=== PATIENT | female | born 1990 | race Caucasian/White ===

== ENCOUNTER 2021-04-20 15:16 | Outpatient (CLI) | payer BC, SELFPAY | END 2021-04-20 15:17 | disposition home or self-care (01) | LOC: ANHLAB 15:19 | PROVIDERS: Visit Provider Obstetrics & Gynecology | DX: Z11.59 Encounter for screening for other viral diseases (principal) | CPT/HCPCS: 36415; 86695; 86696; 86762; 86787 ==

== ENCOUNTER 2022-01-30 09:53 | Outpatient (RCR) | payer BC, SELFPAY ==
[2022-01-30 10:57] VITALS: BP 115/61; PULSE 110
== END 2022-03-26 08:14 | disposition home or self-care (01) ==
LOC: ANHOBOP 09:53
PROVIDERS: Visit Provider Obstetrics & Gynecology
DX: O36.8120 Decreased fetal movements, second trimester, not applicable or unspecified (principal); Z3A.24 24 weeks gestation of pregnancy
CPT/HCPCS: 59025

== ENCOUNTER 2022-03-13 16:00 | Outpatient (RCR) | payer BC, SELFPAY ==
[2022-03-13 16:01] VITALS: BMI 29.2
[2022-03-13 16:05] VITALS: BMI 29.2
== END 2022-05-22 10:01 | disposition home or self-care (01) ==
LOC: ANHDMC 16:00
PROVIDERS: Visit Provider Obstetrics & Gynecology
DX: O24.419 Gestational diabetes mellitus in pregnancy, unspecified control (principal); Z3A.00 Weeks of gestation of pregnancy not specified; Z71.89 Other specified counseling; Z71.3 Dietary counseling and surveillance
CPT/HCPCS: 97802; G0108

== ENCOUNTER 2022-03-15 12:00 | Observation (INO) | payer BC, SELFPAY ==
--- NOTE | ~2022-03-15 | US_ITS ---
EXAMINATION: US OB limited DATE: 03/15/2022 13:43 INDICATION: Spotting. Third trimester. TECHNIQUE: Real-time ultrasound of the pelvis was performed. COMPARISON: None. FINDINGS: There is a single fetus in breech presentation. The placenta is posterior, 7.8 cm from the cervix. F etal heart rate is 154 beats per minute (bpm). The amniotic fluid volume is subjectively normal. IMPRESSION: 1. Single living fetus in breech presentation. 2. Normal placenta. Reviewed, dictated and finalized at location A.
--- NOTE | 2022-03-15 12:25 | OBADM ---
This patient, Elizabeth Franklin, admitted to the OB room OB Post 113 for observation. Patient/family oriented to hospital policies and general routines including ID bracelet, bed and alarms, visiting hours, pain management, procedures, bathroom and other care routines, personal items, smoking policy, room service/diet, and visiting hours. Patient/Family are encouraged to report perceived risks to care and to ask questions if they do not understand what they are told or what they should do.
[2022-03-15 12:26] VITALS: BP 120/67; PULSE 102
--- NOTE | 2022-03-15 13:25 | PC.NURSE ---
pt to ultrasound per wheelchair
--- NOTE | 2022-03-15 13:42 | PC.NURSE ---
pt returned from ultrasound per wheelchair
--- NOTE | 2022-04-17 07:06 | PM.OBTRLD ---
OB - Triage/Final Diagnosis Visit Information Comments/Additional reasons for admission: I have assessed the risk for this patient, Elizabeth Desailaiolimpia, and determined that she would benefit from observation care. Final Diagnosis (1) Spotting affecting in third trimester: Code(s): O26.853 - Spotting complicating , third trimester Status: Acute
== END 2022-03-15 14:30 | disposition home or self-care (01) ==
PROVIDERS: Admitting Provider Obstetrics & Gynecology; Visit Provider Obstetrics & Gynecology
DX: O26.853 Spotting complicating pregnancy, third trimester (principal); Z3A.00 Weeks of gestation of pregnancy not specified
CPT/HCPCS: 76815; G0378; G0379

== ENCOUNTER 2022-05-09 05:04 | Inpatient (IN) | payer BC, SELFPAY ==
[2022-05-09] VITALS (108 sets, daily range): BP systolic 68–135; BP diastolic 36–94; PULSE 87–206; RESP 16–18; TEMP 36.4–37.2; O2SAT 86–100; BMI 29.8
--- NOTE | 2022-05-09 05:04 | LDADM ---
This patient, Elizabeth Franklin, was admitted to Labor/Delivery/Recovery 106 on 05/09/22 at 05:04. Plans for labor, pain management and were discussed with patient. Patient/family oriented to hospital policies and general routines including ID bracelet, bed and alarms, visiting hours, pain management, procedures, bathroom and other care routines, personal items, smoking policy, room service/diet and guest tray routines, security routines, and visiting hours. Patient/Family are encouraged to report perceived risks to care and to ask questions if they do not understand what they are told or what they should do. See OBIX for further documentation.
[2022-05-09 05:41] LABS: Basophils Percent Auto 0.2 % (0.2-1.2); Eosinophils Absolute Auto 0.2 K/mm3 (0-0.3); Hematocrit 35.6 % (37.0-47.0); Hemoglobin 11.8 g/dL (12.0-15.0); Immature Granulocyte Absolute 0.06 K/mm3 (0.00-0.031); Immature Granulocyte Percent A 0.6 % (0-0.5); Lymphocytes Percent Auto 28.7 % (18.3-44.2); Mean Corpuscular HGB Conc 33.1 g/dl (32-36); Mean Corpuscular Hemoglobin 29.2 pg (26-34); Mean Corpuscular Volume 88.1 fl (80-100); Monocytes Absolute Auto 0.7 K/mm3 (0.1-0.6); Monocytes Percent Auto 7.5 % (2.6-8.5); Platelet Count Result 161 k/mm3 (150-375); Red Blood Count 4.04 M/mm3 (4.2-5.4); Red Cell Distribution Width 13.7 % (11.5-14.5); White Blood Count 9.8 K/mm3 (4.5-10.0)
[2022-05-09 05:51] LABS: Glucose Point of Care 100 mg/dl (65-105)
[2022-05-09] MEDS: DINOPROSTONE 10 MG VAG INSERT VAGINAL (06:29)
[2022-05-09 09:01] LABS: Glucose Point of Care 82 mg/dl (65-105)
--- NOTE | 2022-05-09 09:14 | WPDANESEPP ---
Anes - Eval Pre Procedure Procedure: labor epidural Date/Time: 05/09/22 09:14 Pre Op Diagnosis: IOL Patient Data Age: 31 Gender: F Height: 1.57 m Weight: 74 kg Last Vital Signs Temp 36.8 C 05/09/22 08:30 Pulse 99 05/09/22 08:01 BP 107/79 05/09/22 08:01 O2 Del Method Room Air 05/09/22 05:15 Allergies Allergy/AdvReac Type Severity Reaction Status Date / Time No Known Allergies Allergy Verified 05/01/22 08:44 Home Medications Medication Instructions Recorded Confirmed Type docosahexaenoic acid 200 mg 200 mg PO DAILY 10/04/21 04/20/22 History capsule ( DHA) ferrous sulfate 143 mg PO .QOD 02/27/22 04/20/22 History valacyclovir 500 mg tablet 500 mg PO DAILY #30 tabs 04/18/22 04/20/22 Rx (Valtrex) Laboratory Tests 05/09/22 05/09/22 05/09/22 05:36 05:36 05:36 WBC 9.8 K/mm3 K/mm3 (4.5-10.0) RBC 4.04 M/mm3 L M/mm3 (4.2-5.4) Hgb 11.8 g/dL L g/dL (12.0-15.0) Hct 35.6 % L % (37.0-47.0) MCV 88.1 fl fl (80-100) MCH 29.2 pg pg (26-34) MCHC 33.1 g/dl g/dl (32-36) RDW 13.7 % % (11.5-14.5) Plt Count 161 k/mm3 k/mm3 (150-375) MPV 12.0 fl H fl (7.4-10.4) Immature Gran % (Auto) 0.6 % H % (0-0.5) Neut % (Auto) 61.0 % % (45.5-73.1) Lymph % (Auto) 28.7 % % (18.3-44.2) Graham % (Auto) 7.5 % % (2.6-8.5) Eos % (Auto) 2.0 % % (0-4.4) Baso % (Auto) 0.2 % % (0.2-1.2) Lymph # (Auto) 2.80 K/mm3 K/mm3 (0.9-3.2) Graham # (Auto) 0.7 K/mm3 H K/mm3 (0.1-0.6) Eos # (Auto) 0.2 K/mm3 K/mm3 (0-0.3) Baso # (Auto) 0.0 K/mm3 K/mm3 (0.0-0.1) Abs Immat Gran (auto) 0.06 K/mm3 H K/mm3 (0.00-0.031) Absolute Neuts (auto) 6.0 K/mm3 K/mm3 (1.3-6.7) Absolute Nucleated RBC 0.0 K/mm3 K/mm3 (0.0-0.012) Nucleated RBC % 0.0 % % (0.0-0.2) POC Capillary Glucose RPR Pending Blood Type A Positive Antibody Screen Negative 05/09/22 05/09/22 05:41 08:59 WBC RBC Hgb Hct MCV MCH MCHC RDW Plt Count MPV Immature Gran % (Auto) Neut % (Auto) Lymph % (Auto) Graham % (Auto) Eos % (Auto) Baso % (Auto) Lymph # (Auto) Graham # (Auto) Eos # (Auto) Baso # (Auto) Abs Immat Gran (auto) Absolute Neuts (auto) Absolute Nucleated RBC Nucleated RBC % POC Capillary Glucose 100 mg/dl mg/dl 82 mg/dl mg/dl (65-105) (65-105) RPR Blood Type Antibody Screen Patient hx anesthesia problems: none Family hx anesthesia problems: none Results Review: All pre-operative results and documents have been reviewed as part of the pre-operative evaluation. [facility] Past Medical History Medical History Abnormal Pap smear of cervix 04/20/21, LGSIL, HPV pos Surgical History Surgical History History of colposcopy 2019 History of loop electrical excision procedure (LEEP) 2019 [place] teeth extracted 2018 Family History Family History Mother Endometriosis Grandparent Carcinoma of colon Breast cancer Social History Social History Smoking status: Never smoker Alcohol intake: current Substance use: never Spiritual care concerns: No Exam Day of Procedure 05/09/22 09:14
[2022-05-09 13:07] LABS: Glucose Point of Care 109 mg/dl (65-105)
[2022-05-09 17:07] LABS: Glucose Point of Care 116 mg/dl (65-105)
[2022-05-09] MEDS: LACTATED RINGERS 1,000 ML 125 ML IV CONT ×2 (17:46→21:00)
[2022-05-09] MEDS: OXYTOCIN 30 UNITS/NS 500 ML 30 UNITS/500 ML BAG 6 UNITS IV CONT (17:47)
[2022-05-09 22:07] LABS: Glucose Point of Care 70 mg/dl (65-105)
[2022-05-10] VITALS (72 sets, daily range): BP systolic 97–146; BP diastolic 56–106; PULSE 87–136; RESP 16–18; TEMP 36.8–37.7; O2SAT 94–100
[2022-05-10 01:03] LABS: Glucose Point of Care 87 mg/dl (65-105)
[2022-05-10] MEDS: LACTATED RINGERS 1,000 ML 125 ML IV CONT (01:58)
[2022-05-10] MEDS: OXYTOCIN 30 UNITS/NS 500 ML 30 UNITS/500 ML BAG 125 UNITS IV CONT (05:37)
[2022-05-10] MEDS: LIDOCAINE HCL 1% LOCAL INJ 10 ML VIAL (05:39)
--- NOTE | 2022-05-10 06:43 | PM.IMHP ---
H&P: HPI History of Present Illness Date/Time: 05/10/22 06:43 Chief Complaint: Medical induction of labor Narrative: patient is a 31-year-old G0 at 39 weeks by an EDC of 05/16/2022 based on a last period of August 09, 2022 this is consistent with an 8 week ultrasound. course significant for diet-controlled gestational diabetes. She also has a history of her spouse with a history of HSV she has never had any lesion or any diagnosis of HSV. She was started on Valtrex at 36 weeks. Her last ultrasound the EFW was a 81st percentile. She was informed the abdominal circumference was increased. We had previously discussed risk of shoulder dystocia also discussed risk of failure to progress. She opted to get induced at 39 weeks to try to optimize vaginal delivery. Her labs were reviewed. GBS negative. Review of Systems Review of Systems: All systems reviewed & are unremarkable except as noted in HPI and below Constitutional: Constitutional: Reports no additional constitutional complaints and Denies headache(s) Eyes: Eyes: Denies spots in vision ENT: Reports system reviewed and no additional complaints, except as documented and Denies headache(s) Cardiovascular: Cardiovascular: Denies chest pain and Denies dyspnea Respiratory: Respiratory: Denies dyspnea Gastrointestinal: Gastrointestinal: Reports no additional gastrointestinal complaints Genitourinary: Genitourinary: Reports amenorrhea Musculoskeletal: Musculoskeletal: Reports no additional musculoskeletal complaints Integumentary/Breasts: Skin/Breast: Denies breast mass and Denies rash Neurologic: Denies headache(s) Psychiatric: Psychiatric: Reports no additional psychiatric complaints PMFSH Past Medical History Medical History Abnormal Pap smear of cervix 04/20/21, LGSIL, HPV pos Surgical History Surgical History History of colposcopy 2019 History of loop electrical excision procedure (LEEP) 2019 [place] teeth extracted 2018 Family History Family History Mother Endometriosis Grandparent Carcinoma of colon Breast cancer Social History Social History Smoking status: Never smoker Alcohol intake: current Substance use: never Spiritual care concerns: No Meds Home Medications and Allergies Home Medications Medication Instructions Recorded Confirmed Type docosahexaenoic acid 200 mg 200 mg PO DAILY 10/04/21 04/20/22 History capsule ( DHA) ferrous sulfate 143 mg PO .QOD 02/27/22 04/20/22 History valacyclovir 500 mg tablet 500 mg PO DAILY #30 tabs 04/18/22 04/20/22 Rx (Valtrex) Allergies Allergy/AdvReac Type Severity Reaction Status Date / Time No Known Allergies Allergy Verified 05/01/22 08:44 Vital Signs Vital Signs - 24 hr 05/09/22 07:01 05/09/22 07:31 05/09/22 08:01 Temperature Pulse Rate 96 90 99 Respiratory Rate Blood Pressure 130/80 108/53 L 107/79 Pulse Oximetry 05/09/22 08:30 05/09/22 12:32 05/09/22 12:30 Temperature 98.2 F 98.3 F Pulse Rate 99 Respiratory Rate Blood Pressure 127/84 Pulse Oximetry 05/09/22 13:01 05/09/22 13:31 05/09/22 16:35 Temperature Pulse Rate 94 93 99 Respiratory Rate Blood Pressure 118/59 L 108/61 126/80 Pulse Oximetry 05/09/22 16:34 05/09/22 18:55 05/09/22 18:54 Temperature 98.2 F 98.2 F Pulse Rate 97 Respiratory Rate 16 Blood Pressure 124/76 Pulse Oximetry 05/09/22 20:02 05/09/22 20:25 05/09/22 20:29 Temperature Pulse Rate 103 H 102 H Respiratory Rate Blood Pressure 135/82 118/81 Pulse Oximetry 95 05/09/22 20:32 05/09/22 20:34 05/09/22 20:39 Temperature Pulse Rate 107 H Respiratory Rate Blood Pressure 127/86 Pulse Oximetry 100 100
[2022-05-10] MEDS: IBUPROFEN 600 MG TABLET PO (06:54)
[2022-05-10] MEDS: BENZOCAINE 20% AER SPR (*SP) 56 GM CAN 1 SPRAY TOPICAL (06:55)
[2022-05-10] MEDS: WITCH HAZEL 40 PADS 1 PAD TOPICAL (06:55)
--- NOTE | 2022-05-10 07:13 | P.PCNOB_ITS ---
OB - Delivery Note Procedure Delivery date: 05/10/22 Procedure: Spontaneous vaginal delivery Events: Gestational Diabetes Induction method: Per Misoprostol Protocol Delivery augmentation: Rupture of Membranes and Pitocin Delivery monitor: External FHT and Internal Uterine Route of delivery: Episiotomy description: Left Mediolateral Laceration Description: None Delivery repair: vicryl ( 3 0 Vicryl) Specimen: Yes ( placenta and cord) Quantitative Blood Loss (ml): 250 Anesthesia type: Epidural Disposition: Floor Complications: shoulder dystocia lasting 60 seconds Narrative: patient was admitted on 6 10:00 p.m. for medical induction of labor with Cervidil at 39 weeks. Admission blood sugars normal. Her cervix on admission was 1 approximately 30% and -3 station. She started having moderate contractions in the afternoon. She had a cervical exam at approximately 3:30 a.m. and her cervix was 1 and half 60-70% -2. She had assisted rupture of membranes with clear fluid. She did receive Pitocin augmentation. She also had intrauterine pressure catheter placed to adequately adjust her Pitocin. An determine adequacy of labor. She requested an epidural. Epidural was placed. She subsequently dilated to complete at approximately 3:00 a.m.. She had effective pushing she started having mild variables at the time of complete. And with pushing had early decelerations. After approximately 45 minutes of pushing the decelerations were intermittently moderate to severe. I was called at that time to assess her due to the moderate decelerations. She had been pushing approximately an hour and have her station was +1 she did have some caput that descended to +2 but ret racted back. Oxygen was applied. She continued to have good pushing effort she continued to progress with descent. Temperature doing pushing was 99.8. One she started to crown the heart tones were not recording though audibly it sounded in the 50s to 60s. a left mediolateral episiotomy was performed. She was instructed to push. The 's head delivered in JESSIKA position. There is noted to be a tight nuchal cord. This was surgically reduced. gentle traction was applied to the anterior shoulder which did not move. Modified macro hours and suprapubic was applied. Initially this did not cause any release of the shoulder at that time the posterior arm was palpated but the anterior shoulder was starting to deliver and the anterior shoulder was delivered the rest of the was delivered infant was handed to nursery staff in attendance. Cord gases and cord blood was obtained. Pitocin was started. The placenta delivered spontaneously and intact. The left mediolateral episiotomy was repaired with 3 0 Vicryl. Uterus was firm. Patient tolerated procedure well. [place] Baby Date of : 05/10/22 Time of : 05:03 Weeks of gestation at delivery: 39 Infant gender: Male Weight (pounds): 8 Weight (ounces): 3 presentation: vertex position: Left Occiput Anterior Placenta delivery description: Spontaneous Cord Vessel Description: Tight and Reduced ( Surgically) score one minute: 1 score five minutes: 9 AMG Delivery Billing Delivery Delivery: Delivery Charge
--- NOTE | 2022-05-10 08:33 | OBPPTRN ---
Patient transferred to post room #292 via wheelchair. Support person present. Oriented to unit, room, information board, rooming in, admission packet and security measures. Patient verbalizes understanding.
[2022-05-10] MEDS: DOCUSATE SODIUM 100 MG CAPSULE PO ×2 (10:24→17:04)
[2022-05-10] MEDS: MULTIVIT/MIN/PREN/FOL AC/IRON TABLET 1 TAB PO (10:24)
[2022-05-10 10:59] LABS: Rapid Plasma Reagin Non-Reactive (NonReactive)
--- NOTE | 2022-05-10 15:53 | PC.NURSE ---
[id number] Introductions were made, then consulted with patient to assess needs related to . Mother led the conversation with her experience feeding her so far. Infant was delivered 0503 and infant was bottle fed 30 mls 3 hours after . Mother works well with her infant with encouragement and education. Encouraged understanding of the benefits of skin to skin (unwrapping and placing vertically on her chest) and is sleeping skin to skin with mother, responsive feeding and how to watch for early feeding signs, frequency of feeding on demand about every 8-12 times in 24 hours (every 2-3 hours), milk production, duration of feeding, signs of adequate intake/output and how to record on the feeding sheet. Discussed the importance of touching breast with clean hands to prevent infection. Mother demonstrated understanding of hand expression with clean hands and finger fed colostrum. remains sleepy and reluctant. [id number] Infant has not demonstrated feeding cues. Mother has expressed colostrum and finger feeding human drops of milk to . 1405 Blood sugar was resulted at 53 mg/dl. Reviewed stimulating for . is sleepy and reluctant. Resources used to facilitate learning were used with the tool/mom and baby guide. Discussed the risks and benefits of hand expression, manual pumping, electric pumping, using a nipple shield as a tool and supplementing with formula. Mother voiced understanding of responsive feedings, stimulating with skin to skin, hand expressed colostrum, touch, talking to to encourage if it has been 2 -3 hours since the start of the last , to call if does not latch or there is discomfort with . Reported to the primary RN.
[2022-05-11 05:10] VITALS: BP 114/75; PULSE 83; RESP 18; TEMP 36.1; O2SAT 98
[2022-05-11 05:31] LABS: Hematocrit 26.1 % (37.0-47.0); Hemoglobin 8.8 g/dL (12.0-15.0)
--- NOTE | 2022-05-11 08:05 | WPDANLDPN2 ---
Anes-Prog Note L&D Date/Time: 05/11/22 08:05 Neuro status: Neuro function grossly intact. Vital Signs: Last Vital Signs Temp 36.1 C L 05/11/22 05:10 Pulse 83 05/11/22 05:10 Resp 18 05/11/22 05:10 BP 114/75 05/11/22 05:10 Pulse Ox 98 05/11/22 05:10 O2 Del Method Room Air 05/10/22 20:15 Pain score (VAS): 0 Patient feedback: Patient satisfied with anesthetic care.
[2022-05-11] MEDS: POLYSACCHARIDE IRON COMPLEX 150 MG CAPSULE PO (08:28)
[2022-05-11] MEDS: DOCUSATE SODIUM 100 MG CAPSULE PO (08:28)
[2022-05-11] MEDS: MULTIVIT/MIN/PREN/FOL AC/IRON TABLET 1 TAB PO (08:28)
[2022-05-11] MEDS: IBUPROFEN 600 MG TABLET PO (08:28)
[2022-05-11 08:45] VITALS: BP 111/67; PULSE 99; RESP 16; TEMP 36.8; O2SAT 98
--- NOTE | 2022-05-11 11:48 | PM.OBPNVD ---
OB - PN: Subj Subjective Date/time seen: 05/11/22 11:48 Patient comments: pain well controlled, tolerating diet and other (Decreasing lochia.) baby status: doing well and nursing well [place] feeding status: exclusively breast feeding OB - PN: Obj Data Labs CBC & Chem 7: 05/11/22 05:21 Labs: Laboratory Results - last 24 hr 05/11/22 05:21 Hgb 8.8 L D Hct 26.1 L OB - PN A/P Assessment and Plan (1) Delivery normal: Code(s): O80 - Encounter for full-term uncomplicated delivery Status: Acute Assessment and Plan: Normal exam. Doing well. She is considering being discharged today. She will be okay to be discharged if baby is discharged. Discussed discharge precautions discussed. Plan day: 1 Plan: routine care Comments: Patient doing well. Time Spent With Patient Time: Total time spent is greater than 50% in coordination of care (as documented) at patient's floor/unit and/or counseling patient: Review of Systems Review of Systems: All systems reviewed & are unremarkable except as noted in HPI and below Constitutional: Constitutional: Reports no additional constitutional complaints Cardiovascular: Cardiovascular: Denies dyspnea Respiratory: Respiratory: Denies dyspnea Gastrointestinal: Gastrointestinal: Reports no additional gastrointestinal complaints and Denies abdominal pain Genitourinary: Genitourinary: Reports no additional female genitourinary complaints Exam Const: General: no acute distress, alert and awake Resp: Effort & Inspection: normal respiratory effort GI: GI Palp: No Tenderness to palpation present (GI) Other: Fundus nontender, below umbilicus Psych: Appearance: grossly normal Affect: normal affect Other: Abd: fundus firm below umbilicus, nontender Perineum: healing Ext: nontender
--- NOTE | 2022-05-11 11:55 | PM.DS ---
DS: Admitting Diagnosis Discharge Date 05/11/2022 Admitting Diagnosis induction of labor gestational diabetes diet controlled DS: Discharge Diagnosis Discharge Diagnosis (1) Elective induction of labor planned: Status: Acute (2) Gestational diabetes: Code(s): O24.419 - Gestational diabetes mellitus in , unspecified control Status: Acute (3) anemia: Code(s): O90.81 - Anemia of the puerperium Status: Acute Assessment and Plan: Asymptomatic. Continue iron supplementation. DS: Summary Hospital Course Reason for hospitalization: Induction of labor Hospital Course: patient admitted for induction of labor. She had Cervidil. She had subsequent assisted rupture of membranes and then Pitocin augmentation. She had a vaginal delivery. she did well. On day 1 she was ambulating well had adequate pain control with Motrin tolerating regular diet baby was doing well. She was breast-feeding well she requested discharged home. Discharge precautions discussed. Time Spent with Patient Time attestation: Total time spent providing and/or coordinating discharge services: Exam Const: General: cooperative Orientation/consciousness: oriented to person, oriented to place and oriented to time HENMT: General nose exam: Normal external nose present Eyes: General: appearance normal, both eyes and all related structures Resp: Effort & Inspection: normal respiratory effort GI: Inspection: normal to inspection Skin: General skin exam: normal color Neuro: General: oriented to person, oriented to place and oriented to time Extrem: General: normal to inspection and no calf tenderness Psych: Appearance: grossly normal Mental Status: mental status grossly normal DS: Data Data Completed and Pending Pending studies at discharge: Pending at discharge 05/10/22 05:10 Surgical [PTH] Routine Labs on day of discharge: Labs from last 24 hours 05/11/22 05:21 Hgb 8.8 L D Hct 26.1 L Discharge Plan Discharge Attending physician on discharge: Alden Kennedy Consulting providers: Tiffanie Garrido ; Mari Best Discharging Clinician: Alden Kennedy Patient Disposition: Home, Self-Care Activity: may shower, no straining and pelvic rest Diet: regular Discharge Instructions: Pelvic rest for 4-6 weeks. May take over the counter Ibuprofen or Tylenol for pain. Call if saturating more than a pad an hour, leg redness, pain and swelling, temperature>100.4. No strenuous activity. Take daily vitamin. Education: Mom and Baby Guide Given to: Mother Follow-Up: Call your delivering provider's office for an appointment to be seen in: 2 Weeks Mom and baby should come to the [facility] for the follow-up appointment. Appointment Date/Time: May 14, 2022 at 9:00 am What to expect at your follow-up visit: Physical Assessment Call [phone] if you are unable to keep your appointment time. BREAST CARE: * Wear a snug supportive bra. * For engorgement discomfort: Breast Feeding: * Apply warm moist washcloths * Express milk as needed to relieve engorgement * Wear loose clothing * For sore nipples: * Identify correct latch-on * Apply warm moist washcloths before and after nursing * Air dry nipples after nursing * May apply Lansinoh cream to nipples EPISIOTOMY/PERINEAL CARE: * Until bleeding stops, use your dragan bottle after urinating * Change your pad frequently throughout the day * You may take sitz baths several times a day (fill your bathtub with warm water and soak for 20 minutes.) Do NOT bathe in the water * No tub baths until seen by your physician - You may shower ACTIVITY: * Rest as much as possible. * Do not exercise or lift anything heavier than your baby (such as laundry or other children.) * Av
--- NOTE | 2022-05-11 14:35 | PC.NURSE ---
0830- is in the nursery for ICP assessment. [id number] Infant back with mother and skin to skin. Infant is stimulated to breastfeed but is sleepy and reluctant. OB doctor is here to perform circumcision. Infant goes back to the nursery. 1000 - Mother pumped breast for milk production. 1025 - 5 mls syringe fed to infant. [id number] - Consulted with patient to assess needs related to . Mother led conversation with her experience with feeding baby so far and will not wake to breastfeed. Mother works well with her infant with encouragement. Mother demonstrated understanding of positioning and alignment, supporting breast, off-centered (asymmetrical latch) and leading with the chin with big open wide gape. Infant latched optimally to the left breast in football position with mother supporting breast with a off centered u-hold sandwich method. Education given to mother of how to visualize suck/swallow ratios and drinking at the breast. was able to maintain latch and actively swallowing without discomfort to mother. Nipple care reviewed with optimal latch and good positioning, comfort, healing with warm, wet washcloth to rinse breast, then leave open to air-dry, colostrum may be left on nipples to dry but have clean hands when touching the nipple/breast as needed. Resources used to facilitate learning were used from the mom and baby guide. Mother voiced understanding of the education shared, calling for assistance if the does not latch or if there is discomfort with . Mother led the conversation with her experience and plan to possibly go home today. She is considering if she is confident to feed her and her ability to independently latch optimally without discomfort. Mother plans to pump if infant doesn't latch well. Reminded parents to use good handwashing technique to prevent infection. Mother is feeding appropriately for growth of and understands stimulating infant to eat if needed. Infant has had appropriate feedings in the last 24 hours meets the outcomes for weight, output and jaundice at this time. Mother voiced knowing when to call for assistance, denies any additional assistance or education at this time. Reinforced understanding of milk production, transition of milk, signs of adequate intake, prevention/relief of engorgement, responsive after visualizing feeding cues, the different methods of stimulating infant to breastfeed 2-3 hours after the start of the last feeding, community resources, medication information reviewed per [employer] and when to call a provider using the resource of the mom and baby guide/[facility] website. Mother voiced understanding of the education shared. Reported to the primary RN.
--- NOTE | 2022-05-11 15:04 | PC.NURSE ---
Patient instructed on viewing the discharge video Mother & Baby Care, The First Two Weeks . Patient was given the opportunity and encouraged to ask questions. Patient verbalized understanding of information shared and has been given the mother/baby guide for home reference.
[2022-05-14 08:49] VITALS: BP 119/75; PULSE 81; RESP 16; TEMP 37.2; O2SAT 98
== END 2022-05-11 18:06 | disposition home or self-care (01) | DRG 807 ==
LOC: ANHLDR 05:08 → ANHOB2 05-10 09:44
PROVIDERS: Admitting Provider Obstetrics & Gynecology; Visit Provider Obstetrics & Gynecology
DX: O24.420 Gestational diabetes mellitus in childbirth, diet controlled (principal); Z37.0 Single live birth; Z3A.39 39 weeks gestation of pregnancy; O90.81 Anemia of the puerperium; D64.9 Anemia, unspecified; O36.8330 Maternal care for abnormalities of the fetal heart rate or rhythm, third trimester, not applicable or unspecified; O69.1XX0 Labor and delivery complicated by cord around neck, with compression, not applicable or unspecified
CPT/HCPCS: 36415; 82948; 85014; 85018; 85025; 86592; 86850; 86900; 86901; 88307; A9270; J2590; J2795; J7120

== ENCOUNTER 2024-03-26 11:04 | Outpatient (CLI) | payer SELFPAY | END 2024-03-26 11:05 | disposition home or self-care (01) | LOC: ANHLAB 11:07 | PROVIDERS: Visit Provider Obstetrics & Gynecology | DX: O20.9 Hemorrhage in early pregnancy, unspecified (principal); Z3A.00 Weeks of gestation of pregnancy not specified | CPT/HCPCS: 36415; 84702 ==

== ENCOUNTER 2024-03-28 10:08 | Outpatient (CLI) | payer SELFPAY ==
[2024-03-28 11:44] LABS: Beta HCG Quantitative 4.81 mIU/ML
== END 2024-03-28 10:09 | disposition home or self-care (01) ==
LOC: ANHLAB 10:09
PROVIDERS: Visit Provider Obstetrics & Gynecology
DX: O26.851 Spotting complicating pregnancy, first trimester (principal); Z3A.00 Weeks of gestation of pregnancy not specified
CPT/HCPCS: 36415; 84702

== ENCOUNTER 2024-04-07 09:54 | Outpatient (CLI) | payer SELFPAY ==
[2024-04-07 10:38] LABS: Beta HCG Quantitative < 2.39 mIU/ML
== END 2024-04-07 09:55 | disposition home or self-care (01) ==
LOC: ANHLAB 09:54
PROVIDERS: Visit Provider Obstetrics & Gynecology
DX: O26.851 Spotting complicating pregnancy, first trimester (principal); Z3A.00 Weeks of gestation of pregnancy not specified
CPT/HCPCS: 36415; 84702

== ENCOUNTER 2024-06-24 12:33 | Outpatient (CLI) | payer SELFPAY ==
[2024-06-24 13:17] LABS: Alanine Aminotransferase 16 U/L (6-35); Albumin Level 4.6 g/dL (3.5-5.1); Alkaline Phosphatase 41 U/L (38-126); Anion Gap 9 mmol/L (4-12); Aspartate Amino Transferase 24 U/L (14-36); Bilirubin,Total 0.6 mg/dL (0.2-1.3); Blood Urea Nitrogen 17 mg/dL (7-17); Calcium 9.4 mg/dL (8.4-10.2); Carbon Dioxide 29 mmol/L (22-30); Chloride 99 mmol/L (98-107); Estimated Glomerular Filt Rate > 60; Glucose 91 mg/dL (65-110); Potassium 4.4 mmol/L (3.4-5.0); Sodium 137 mmol/L (137-145)
[2024-06-24 13:31] LABS: Beta HCG Quantitative < 2.39 mIU/ML
[2024-06-26 01:18] LABS: FSH 7.1 mIU/mL; LH 7.2 mIU/mL; Progesterone 1.7 ng/mL
== END 2024-06-24 12:34 | disposition home or self-care (01) ==
LOC: ANHLAB 12:34
PROVIDERS: Visit Provider Obstetrics & Gynecology
DX: Z87.59 Personal history of other complications of pregnancy, childbirth and the puerperium (principal)
CPT/HCPCS: 36415; 80053; 83001; 83002; 84144; 84443; 84702

== ENCOUNTER 2024-07-15 09:44 | Outpatient (CLI) | payer SELFPAY ==
[2024-07-17 12:13] LABS: Progesterone 30.4 ng/mL
== END 2024-07-15 09:45 | disposition home or self-care (01) ==
PROVIDERS: Visit Provider Obstetrics & Gynecology
DX: Z87.59 Personal history of other complications of pregnancy, childbirth and the puerperium (principal)
CPT/HCPCS: 36415; 84144

== ENCOUNTER 2024-08-17 10:24 | Outpatient (CLI) | payer SELFPAY ==
[2024-08-19 08:34] LABS: Progesterone 43.6 ng/mL
== END 2024-08-17 10:25 | disposition home or self-care (01) ==
PROVIDERS: Visit Provider Obstetrics & Gynecology
DX: N97.9 Female infertility, unspecified (principal)
CPT/HCPCS: 36415; 84144

== ENCOUNTER 2024-09-02 10:32 | Outpatient (CLI) | payer SELFPAY ==
--- NOTE | ~2024-09-02 | XR_ITS ---
EXAMINATION: XR hysterosalpingogram DATE: 09/02/2024 12:27 INDICATION: Female infertility TECHNIQUE: Multiple fluoroscopic images were obtained during contrast infusion into the endometrial c anal of the uterus by the primary physician. Fluoroscopy exposure time was 1.7 minutes. Total DAP was 5.3 mGycm^2. A total of 8 fluoroscopic images were recorded. FINDINGS: The uterine cavity demonstrates normal morphology. There is however a persistent ovoid filling defect along the left side of the lower uterine segment which do not appear to shifting position with the p atient in the LPO and RPO positions raising suspicion for either endometrial polyp or submucosal fibr oid. The fallopian tubes are patent bilaterally with spillage of contrast into the peritoneum on both sides. There is mild dilation of the right fallopian tube. IMPRESSION: 1. Patent bilateral fallopian tubes but with mild dilation of the right tube. 2. Fixed ovoid filling defect at the lower uterine segment suggesting an endometrial polyp or subsero isha fibroid. Could consider pelvic ultrasound for further evaluation. Reviewed, dictated and finalized at location A. IMPRESSION: 1. Patent bilateral fallopian tubes but with mild dilation of the right tube. 2. Fixed ovoid filling defect at the lower uterine segment suggesting an endome trial polyp or subserosal fibroid. Could consider pelvic ultrasound for further evaluation.
[2024-09-02 11:35] LABS: Beta HCG Quantitative < 2.39 mIU/ML
== END 2024-09-02 10:33 | disposition home or self-care (01) ==
PROVIDERS: Visit Provider Obstetrics & Gynecology
DX: N97.9 Female infertility, unspecified (principal)
CPT/HCPCS: 36415; 58340; 74740; 84702; Q9966

== ENCOUNTER 2024-09-30 10:53 | Outpatient (CLI) | payer SELFPAY ==
--- NOTE | ~2024-09-30 | US_ITS ---
US pelvic complete w TV Ordering provider: Alden Kennedy MD History: . R93.89 - Abnormal findings on diagnostic imaging of other... . Comparison: None. Technique: Transabdominal and endovaginal ultrasound of the pelvis (Doppler ultrasound interrogation techniques used as needed for this exam.) FINDINGS: CERVIX: Complex area which is suggestive of Possible Polyp in the cervical canal. UTERUS: Measures 7.7x 3.9x 4.5 cm in length which is within normal limits and is anteverted. No myom etrial masses. ENDOMETRIUM: Normal in thickness measuring 5.5 mm. (Note: the premenopausal endometrium may measure u p to 16 mm when in the secretory phase.) No endometrial masses, cysts or fluid. CUL DE SAC: Minimal free fluid in the posterior cul-de-sac. RIGHT OVARY: Normal in size measuring 2.9x 1.4x 2.2 Normal echotexture. Doppler vascular flow present . LEFT OVARY: Normal in size measuring 3x 2.7x 2.7 centimeter. Normal echotexture. Doppler vascular cady w present. Anechoic areas suggestive of simple cyst is seen measuring 1.9 x 1.6 x 2 cm. ADNEXA: Normal. No mass. IMPRESSION: Possible polyp in the cervix. Left ovarian simple cyst. Otherwise, normal pelvic ultrasound. Reviewed, dictated and finalized at location A. 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 Left ovarian simple cyst. Otherwise, normal pelvi c ultrasound.
== END 2024-09-30 10:54 | disposition home or self-care (01) ==
PROVIDERS: PCP Obstetrics & Gynecology; Visit Provider Obstetrics & Gynecology
DX: R93.89 Abnormal findings on diagnostic imaging of other specified body structures (principal); N83.292 Other ovarian cyst, left side
CPT/HCPCS: 76830; 76856

== ENCOUNTER 2024-10-14 10:09 | Outpatient (CLI) | payer SELFPAY ==
[2024-10-15 07:28] LABS: Progesterone 54.6 ng/mL
== END 2024-10-14 10:10 | disposition home or self-care (01) ==
PROVIDERS: PCP Obstetrics & Gynecology; Visit Provider Nurse Practitioner Family
DX: N97.9 Female infertility, unspecified (principal)
CPT/HCPCS: 36415; 84144

== ENCOUNTER 2025-09-07 08:16 | Outpatient (CLI) | payer SELFPAY ==
--- OUTSIDE RECORDS SUMMARY | 2025-09-07 08:55 | XMS_ITS | Clinical Summary ---
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
[2025-09-07 10:02] LABS: Beta HCG Quantitative 2333.40 mIU/ML
== END 2025-09-07 08:17 | disposition home or self-care (01) ==
PROVIDERS: Visit Provider Obstetrics & Gynecology
DX: Z87.59 Personal history of other complications of pregnancy, childbirth and the puerperium (principal)
CPT/HCPCS: 36415; 84144; 84702

== ENCOUNTER 2025-09-09 08:33 | Outpatient (CLI) | payer SELFPAY ==
--- OUTSIDE RECORDS SUMMARY | 2025-09-09 08:43 | XMS_ITS | Clinical Summary ---
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
[2025-09-09 10:03] LABS: Beta HCG Quantitative 5399.00 mIU/ML
== END 2025-09-09 08:34 | disposition home or self-care (01) ==
PROVIDERS: Visit Provider Obstetrics & Gynecology
DX: O09.299 Supervision of pregnancy with other poor reproductive or obstetric history, unspecified trimester (principal); Z3A.00 Weeks of gestation of pregnancy not specified
CPT/HCPCS: 36415; 84702